=== PATIENT | female | born 1990 | race African-American/Black ===

== ENCOUNTER 2016-12-25 09:30 | Emergency (ER) | payer MEDICAID ==
[~2016-12-25 09:30] MED LIST: NKM; RANITIDINE HCL150 MG ORAL
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
== END 2016-12-25 09:40 | disposition left against medical advice (07) ==
LOC: EMR 09:40
DX: R10.9 Unspecified abdominal pain (principal); Z53.21 Procedure and treatment not carried out due to patient leaving prior to being seen by health care provider

== ENCOUNTER 2017-12-29 08:12 | Emergency (ER) | payer MEDICAID ==
[~2017-12-29] VITALS: Ht 172.7 cm; Wt 56.2 kg
[2017-12-29 08:34] VITALS: BP 111/74
[2017-12-29] MEDS ORDERED: FIORICET1 EA ORAL (10:03)
--- NOTE | 2017-12-29 10:07 | Emergency Room Report ---
History of Present Illness General Chief Complaint: Earache Source: Patient Present Illness HPI 27yo f presents with left ear ache for the past 10 days Symptoms are moderate to severe, intermittent, and thought to be attributed to a toothache However patient has no toothache currently, and had a normal dental examination recently She denies hearing loss, fevers, syncope, numbness tingling weakness, slurred speech, facial droop However she does report nausea with photophobia and phonophobia She reports her pain was not sudden in onset but has been gradually worsening and then getting better on its own but not completely resolved she reports intermittently with Tylenol Allergies: Coded Allergies: No Known Allergies (Unverified , 10/23/14) Patient History Past Medical History: see triage record Last Menstrual Period: 12/23/17 Now: No : 4 Para: 2 Reviewed Nursing Documentation: PMH: Agreed, PSxH: Agreed Nursing Documentation-PM Past Medical History: No Stated History Review of Systems All Other Systems: negative except mentioned in HPI Physical Exam Vital Signs Date Time Temp Pulse Resp B/P (MAP) Pulse Ox O2 Delivery O2 Flow Rate FiO2 12/29/17 08:23 97.7 56 16 111/74 99 Room Air 97.7 Sp02 EP Interpretation: reviewed, normal General Appearance: no apparent distress, alert, non-toxic Head: normocephalic Eyes: bilateral eye normal inspection, bilateral eye PERRL, bilateral eye EOMI ENT: normal ENT inspection, hearing grossly normal, normal pharynx, no angioedema, normal voice, moist mucus membranes Neck: normal inspection, full range of motion, supple, supple/symm/no masses Respiratory: chest non-tender, lungs clear, normal breath sounds, chest symmetrical, palpation of chest normal Cardiovascular #1: normal peripheral pulses, regular rate, rhythm Cardiovascular #2: 2+ radial (R), 2+ radial (L) Gastrointestinal: normal inspection, non tender, soft, no mass, no guarding, no rebound Rectal: deferred Genitourinary: normal inspection, no CVA tenderness Musculoskeletal: back normal, gait/station normal, normal range of motion, non- tender, no calf tenderness Neurologic: alert, responsive, financial economist III-XII nml as tested, motor strength/tone normal, sensory intact, normal gait, speech normal Psychiatric: judgement/insight normal, memory normal, mood/affect normal, no suicidal/homicidal ideation Skin: normal color, no rash, warm/dry, normal turgor Lymphatic: no adenopathy Medical Decision Making Reaction to Intervention: Improved Diagnostic Impression: Primary Impression: Headache ER Course Patient with normal ear examination, normal dental examination other than old dental caries Symptoms more consistent with headache pathology such as migraine Patient is extremely well-appearing, with a normal neurologic examination as well as normal ear exam Headache was not sudden onset and severe, and she has no neurologic findings or complaints Will discharge home with Fioricet prescription after getting ibuprofen here 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 and I do not want to give her any sedating medications She was instructed to avoid drinking or driving when taking Fioricet She understood and agreed, and I recommend she follow-up with a primary care doctor for further evaluation Last Vital Signs Date Time Temp Pulse Resp B/P (MAP) Pulse Ox O2 Delivery O2 Flow Rate FiO2 12/29/17 09:44 97.7 12/29/17 08:34 56 16 111/74 99 Room Air Status: improved Disposition: HOME, SELF-CARE Scripts Acetamin/Butalbital/Caffeine* (FIORICET*) 1 Ea Tab 1 TAB ORAL Q4H Y for For Headache, #14 TAB Prov: JAYE HUTCHINS M.D 12/29/17 Patient Instructions: Migraine Headache, [id number] JAYE HUTCHINS M.D Dec 29, 2017 10:07
[2017-12-29 10:16] VITALS: BP 111/74
== END 2017-12-29 10:17 | disposition home or self-care (01) ==
LOC: EMR 09:06
DX: R51 Headache (principal)
CPT/HCPCS: 99283